=== PATIENT | female | born 2000 | race Caucasian/White ===

== ENCOUNTER 2019-02-28 07:58 | Emergency (ER) | payer BC ==
--- OUTSIDE RECORDS SUMMARY | 2019-02-28 08:08 | XMS REPORT | Continuity of Care Document ---
:2000 External Reference #:[id number] Author Name Yue Lanza MD Address [address] [place] [address] Care Team Providers Name Role Phone Martinez Oleary MD Care Team Information Manager Group [phone] Problems Active Problems Provider Date Crohn's disease Orin Garcia WHNP Onset: 12/08/2015 Primary dysmenorrhea Orin Garcia WHNP Onset: 12/08/2015 Excessive and frequent menstruation Orin Garcia WHNP Onset: 12/08/2015 Social History Type Date Description Comments Sex Unknown Tobacco Use Start: Unknown Never Smoked Cigarettes Tobacco Use Start: Unknown Non-smoker, Non-drinker, Non-drug User Smoking Status Reviewed: 12/18/18 Non-smoker, Non-drinker, Non-drug User Tobacco Use Start: Unknown Patient has never smoked Allergies, Adverse Reactions, Alerts Description No Known Drug Allergies Medications Active Medications SIG Qnty Indications Ordering Date Provider Fluconazole 1 by mouth now and 2tabs B37.3 Yue Lanza 12/18/2018 150mg one tomorrow MD Tablets Metronidazole one tab by mouth 14tabs N76.0 Yue Lanza 12/18/2018 500mg twice a day x 7 MD Tablets days Valacyclovir HCL 1 by mouth daily 90tabs Yue Lanza 10/16/2018 1gm Tablets Premarin use small amount 60gm Yue Lanza 10/16/2018 0.625mg/GM to affected area Cream every night at bedtime as needed Norethindrone 1 by mouth every 112tabs Yue Lanza 08/10/2016 Acetate/Ethinyl day, takes for 3mo Estradiol continuous active 1-20mg-mcg dose, then one Tablets week placebo Immunizations Description No Information Available Vital Signs Date Vital Result Comment 12/18/2018 9:49am BP Systolic 110 mmHg BP Diastolic 70 mmHg 10/16/2018 9:08am BP Systolic 100 mmHg BP Diastolic 60 mmHg Heart Rate 88 /min Height 65.75 inches 5'5.75" Weight 147.00 lb BMI (Body Mass Index) 23.9 kg/m2 Body Mass Index Percentile 73 % BSA (Body Surface Area) 1.75 m2 Results Description No Information Available Procedures Description No Information Available Medical Devices Description No Information Available Encounters Type Date Location Provider Dx Diagnosis Office Visit 12/18/2018 [facility] mail room clerk Yue Lanza MD B37.3 Candidiasis of 9:45a vulva and vagina N76.0 Acute vaginitis Office Visit 10/16/2018 9:00a [facility] Yue Lanza MD Q52.5 Fusion of labia mail room clerk N76.3 Subacute and chronic vulvitis B00.89 Other herpesviral infection Assessments Date Code Description Provider 12/18/2018 B37.3 Candidiasis of vulva and vagina Yue Lanza MD 12/18/2018 N76.0 Acute vaginitis Yue Lanza MD 10/16/2018 Q52.5 Fusion of labia Yue Lanza MD 10/16/2018 N76.3 Subacute and chronic vulvitis Yue Lanza MD 10/16/2018 B00.89 Other herpesviral infection Yue Lanza MD Plan of Treatment Future Appointment(s):10/21/2019 2:00 pm - Yue Lanza MD at [facility] OB/ Gyn12/18/2018 - Yue Lanza MDB37.3 Candidiasis of vulva and vaginaNew Medication:Fluconazole 150 mg - 1 by mouth now and one ovtdlamsS54.0 Acute vaginitisNew Medication:Metronidazole 500 mg - one tab by mouth twice a day x 7 days Functional Status Description No Information Available Mental Status Description No Information Available Referrals Description No Information Available
[2019-02-28 08:14] VITALS: BP 111/63
--- NOTE | 2019-02-28 08:30 | UC ---
Skin Complaint HPI - HPI Summary HPI Summary: 18-year-old female comes in with a chief complaint of an infected biopsy site in her perineal region. 3 days ago patient had two left labia punch biopsies to investigate for lichen sclerosis. Patient reports the first day it hurt the second day was improved and then yesterday started having drainage in being painful and having yellow drainage. She is on immunosuppressants for her Crohn' s disease. No fevers no chills feels well otherwise. - History of Current Complaint Chief Complaint: UCSkin Time Seen by Provider: 02/28/19 08:22 Stated Complaint: SKIN COMPLAINT Hx Last Menstrual Period: 01/06/19 Pain Intensity: 0 - Allergy/Home Medications Allergies/Adverse Reactions: Allergies Allergy/AdvReac Type Severity Reaction Status Date / Time No Known Allergies Allergy Verified 02/28/19 08:15 Home Medications: Home Medications Bcp 02/28/19 [History] Ustekinumab [Stelara] 90 mg SQ SEE INSTRUCTIONS 02/28/19 [History Confirmed ] PMH/Surg Hx/FS Hx/Imm Hx Previously Healthy: Yes Other GI/ History: chrons - Surgical History Surgical History: Yes Surgery Procedure, Year, and Place: left ankle - Family History Known Family History: Positive: Non-Contributory - Social History Alcohol Use: None Substance Use Type: None Smoking Status (MU): Never Smoked Tobacco Review of Systems All Other Systems Reviewed And Are Negative: Yes Constitutional: Positive: Negative Skin: Positive: Other - see hpi Eyes: Positive: Negative ENT: Positive: Negative Respiratory: Positive: Negative Cardiovascular: Positive: Negative Gastrointestinal: Positive: Negative Genitourinary: Positive: Other - see hpi Motor: Positive: Negative Neurovascular: Positive: Negative Musculoskeletal: Positive: Negative Neurological: Positive: Negative Psychological: Positive: Negative Is Patient Immunocompromised?: No Physical Exam Triage Information Reviewed: Yes Appearance: Well-Appearing, No Pain Distress Vital Signs: Initial Vital Signs Temp 98.0 F 02/28/19 08:08 Pulse 91 02/28/19 08:08 Resp 16 02/28/19 08:08 BP 111/63 02/28/19 08:08 Pulse Ox 100 02/28/19 08:08 Vital Signs Reviewed: Yes Eye Exam: Normal Eyes: Positive: Conjunctiva Clear Neck: Positive: Supple Respiratory: Positive: No respiratory distress Musculoskeletal: Positive: Strength Intact, ROM Intact Neurological: Positive: Alert, Muscle Tone Normal Psychological: Positive: Age Appropriate Behavior Skin: Positive: Other - On the left labia there are 2 punch biopsy sites each one 5 mm in size. There is some yellow matter adjacent to the areas no obvious drainage at this time directly from the punch biopsy sites. There is some erythema. No fluctuant soft tissue mass. Course/Dx - Course Course Of Treatment: Going to start the patient on Bactrim twice a day and also topical mupirocin she is going to Clean the area several times a day. I discussed that if the infections got worse she had pain fevers did not feel well she needed further evaluation emergency department. A wound culture was obtained. - Diagnoses Provider Diagnosis: Infection of wound of perineum Discharge ED - Sign-Out/Discharge Documenting (check all that apply): Patient Departure All imaging exams completed and their final reports reviewed: No Studies - Discharge Plan Condition: Stable Disposition: HOME Prescriptions: Mupirocin 1 applic TOPICAL BID #22 gm Sulfamethox/Trimethoprim DS* [Bactrim DS 800/160 TAB*] 1 tab PO BID #20 tab Patient Education Materials: Surgical Site Infections (ED) Referrals: [facility] [place] [facility]YS[facility]IAN REFERRAL [Outside] Additional Instructions: FOLLOW UP WITH YOUR DOCTOR IF NOT COMPLETELY IMPROVED. GO TO THE EMERGENCY DEPARTMENT IF NOT IMPROVING OR YOUR CONDITION WORSENS; PAIN , FEVER, YOU FEEL ILL OR ANY QUESTIONS OR CONCERNS. - Billing Disposition and Condition Condition: STABLE Disposition: Home
--- NOTE | 2019-03-05 07:25 | UC ---
- Progress Note Progress Note: Pt culture resistant to Cephalexin d/c new Rx bactrim sent please call pt and advise [email or web address] Course/Dx - Diagnoses Provider Diagnoses: Infection of wound of perineum Discharge ED - Sign-Out/Discharge Documenting (check all that apply): Post-Discharge Follow Up All imaging exams completed and their final reports reviewed: No Studies - Discharge Plan Condition: Stable Disposition: HOME Prescriptions: Mupirocin 1 applic TOPICAL BID #22 gm Sulfamethox/Trimethoprim DS* [Bactrim DS 800/160 TAB*] 1 tab PO BID #14 tab Patient Education Materials: Surgical Site Infections (ED) Referrals: [facility] [place] PH[facility]IAN REFERRAL [Outside] Additional Instructions: FOLLOW UP WITH YOUR DOCTOR IF NOT COMPLETELY IMPROVED. GO TO THE EMERGENCY DEPARTMENT IF NOT IMPROVING OR YOUR CONDITION WORSENS; PAIN , FEVER, YOU FEEL ILL OR ANY QUESTIONS OR CONCERNS. - Billing Disposition and Condition Condition: STABLE Disposition: Home
== END 2019-02-28 08:55 | disposition home or self-care (01) ==
LOC: UCCORT 07:58
DX: T81.49XA Infection following a procedure, other surgical site, initial encounter (principal); Y84.8 Other medical procedures as the cause of abnormal reaction of the patient, or of later complication, without mention of misadventure at the time of the procedure; Y92.9 Unspecified place or not applicable
CPT/HCPCS: 87070; 87077; 87186; 99212; G0463

== ENCOUNTER 2019-03-02 13:51 | Emergency (ER) | payer BC ==
[2019-03-02 15:19] VITALS: BP 108/66
--- NOTE | 2019-03-02 15:31 | UC ---
Throat Pain/Nasal David HPI - HPI Summary HPI Summary: post op skin biopsy infection on labia---was started on BActrim but caused profound nausea---also today patient noted sinus pain and congestion--no fevers- -patient reports pain/swelling erythema on labia is resolved - History of Current Complaint Chief Complaint: UCRespiratory Stated Complaint: SINUS CONCERN Time Seen by Provider: 03/02/19 15:09 Hx Obtained From: Patient Hx Last Menstrual Period: 01/06/19 ?: No Onset/Duration: Sudden Onset Pain Intensity: 7 Pain Scale Used: 0-10 Numeric Cough: None Associated Signs & Symptoms: Positive: Sinus Discomfort, Other - nausea when she takes bactrim. Negative: Fever, Vomiting - Allergies/Home Medications Allergies/Adverse Reactions: Allergies Allergy/AdvReac Type Severity Reaction Status Date / Time No Known Allergies Allergy Verified 02/28/19 08:15 PMH/Surg Hx/FS Hx/Imm Hx Previously Healthy: No GI/ History: Other Other GI/ History: crohns - Surgical History Surgical History: Yes Surgery Procedure, Year, and Place: left ankle - Family History Known Family History: Positive: Non-Contributory - Social History Occupation: Student Lives: Dormitory/Roommates Alcohol Use: None Substance Use Type: None Smoking Status (MU): Never Smoked Tobacco Review of Systems All Other Systems Reviewed And Are Negative: Yes Constitutional: Positive: Negative Skin: Positive: Other - resolved post op infection Eyes: Positive: Negative ENT: Positive: Sore Throat, Ear Ache, Sinus Congestion Respiratory: Positive: Negative Cardiovascular: Positive: Negative Gastrointestinal: Positive: Negative Genitourinary: Positive: Negative Motor: Positive: Negative Neurovascular: Positive: Negative Musculoskeletal: Positive: Negative Neurological: Positive: Negative Psychological: Positive: Negative Is Patient Immunocompromised?: No Physical Exam Triage Information Reviewed: Yes Appearance: Well-Appearing, No Pain Distress, Well-Nourished Vital Signs: Initial Vital Signs Temp 98.4 F 03/02/19 15:10 Pulse 95 03/02/19 15:10 Resp 18 03/02/19 15:10 BP 108/66 03/02/19 15:10 Pulse Ox 97 03/02/19 15:10 Vital Signs Reviewed: Yes Eye Exam: Normal Eyes: Positive: Conjunctiva Clear ENT Exam: Normal ENT: Positive: Normal ENT inspection, Hearing grossly normal, Pharynx normal, Nasal congestion, TMs normal, Sinus tenderness, Uvula midline. Negative: Nasal drainage, Tonsillar swelling, Tonsillar exudate, Trismus, Muffled voice, Hoarse voice, Dental tenderness Dental Exam: Normal Neck exam: Normal Neck: Positive: Supple, Nontender, No Lymphadenopathy Respiratory Exam: Normal Respiratory: Positive: Chest non-tender, Lungs clear, Normal breath sounds, No respiratory distress, No accessory muscle use Cardiovascular Exam: Normal Cardiovascular: Positive: RRR, No Murmur, Pulses Normal, Brisk Capillary Refill Musculoskeletal Exam: Normal Musculoskeletal: Positive: Strength Intact, ROM Intact, No Edema Neurological Exam: Normal Neurological: Positive: Alert, Muscle Tone Normal Psychological Exam: Normal Psychological: Positive: Normal Response To Family, Age Appropriate Behavior, Consolable Skin Exam: Normal Throat Pain/Nasal Course/Dx - Course Course Of Treatment: add flonase limit use of Afrin nasal spray, , stop bactrim, continue barctron will add keflex--follow with surgeon as planned and [facility] for cc of sinus congestion - Differential Dx/Diagnosis Provider Diagnosis: Postoperative wound infection, Acute rhinosinusitis Discharge ED - Sign-Out/Discharge Documenting (check all that apply): Patient Departure All imaging exams completed and their final reports reviewed: No Studies - Discharge Plan Condition: Stable Disposition: HOME Prescriptions: Cephalexin CAP* [Keflex CAP*] 500 mg PO QID #28 cap Fluticasone NASAL SPRAY 50MCG* [Flonase NASAL SPRAY 50MCG*] 2 spray BOTH NARES DAILY #1 btl Patient Education Materials: Wound Infection (ED), Sinusitis (ED), How to Use Nasal [place] (ED), Warm Compress or Soak (ED) Referrals: [facility] [Outside] - If Needed - Billing Disposition and Condition Condition: STABLE Disposition: Home
== END 2019-03-02 15:57 | disposition home or self-care (01) ==
LOC: UCCORT 13:51
DX: T81.49XA Infection following a procedure, other surgical site, initial encounter (principal); N76.2 Acute vulvitis; J32.9 Chronic sinusitis, unspecified; K50.90 Crohn's disease, unspecified, without complications; J02.9 Acute pharyngitis, unspecified; R11.0 Nausea
CPT/HCPCS: 99212; G0463